=== PATIENT | male | born 1985 | race Caucasian/White ===

== ENCOUNTER 2016-12-08 10:44 | Emergency (ER) | payer OTHER ==
--- NOTE | 2016-12-08 11:14 | EDPHY ---
H & P Stated Complaint: bloody emesis and dysuria Time Seen by Provider: 12/08/16 11:00 HPI/ROS: CHIEF COMPLAINT: Hematemesis HISTORY OF PRESENT ILLNESS: 31-year-old male with no coagulopathic disorder, no history of chronic NSAID, awoke and vomited food product and noticed red streaks. He then vomited again. Have a more "mud like coloration". No nausea currently. He also complains of generalized abdominal discomfort. He notes no melena but does note blood on the toilet paper when he wipes and pain with defecation. He also notes 1 episode of dysuria this morning which is now resolved. No urethral discharge. No trauma. No unprotected sexual activity. PRIMARY CARE PROVIDER:no primary care provider REVIEW OF SYSTEMS: A ten point review of systems was performed and is negative with the exception of the items mentioned in the HPI PAST MEDICAL & SURGICAL HISTORY: No pertinent medical or surgical history SOCIAL HISTORY:nonsmoker. No drug use. PHYSICAL EXAM (Prior to examination, patient consented to physical exam, hands were washed and my usual and customary physical exam procedures followed) 1) GENERAL: Well-developed, well-nourished, alert and oriented. Appears to be in no acute distress. Smiling. 2) HEAD: Normocephalic, atraumatic 3) HEENT: Pupils equal, round, reactive to light bilaterally. Sclera anicteric. Nasopharynx, oropharynx, clear, no lesions. Ears bilaterally with normal tympanic membranes. 4) NECK: Full range of motion, no meningeal signs. 5) LUNGS: Clear auscultation bilaterally, no wheezes, no rhonchi, no retractions. 6) HEART: Regular rate and rhythm, no murmur, no heave, no gallop. 7) ABDOMEN: No guarding, no rebound, no focal tenderness, negative McBurney's, negative Hung's, negative Rovsing's, negative peritoneal sign, 8) MUSCULOSKELETAL: Moving all extremities, no focal areas of tenderness, no obvious trauma. No peripheral edema or discoloration. 9) BACK: No CVA tenderness, no midline vertebral tenderness, no fluctuance, no step-off, no obvious trauma, no visual or palpable abnormality. 10) SKIN: No rash, no petechiae. 11) Psychiatric: Patient is oriented X 3, there is no agitation. 12) : Circumcised, no urethral discharge, no signs of trauma bilateral cremasteric reflex present brisk. Rectal examination reveals nonthrombosed external hemorrhoid, brown stool on glove. DIFFERENTIAL DIAGNOSIS: in no particular include but limited to upper GI bleed , lower GI bleed, Lisa-Jameson tear, anal fissure, hemorrhoid - Personal History Current Tetanus/Diphtheria Vaccine: Yes - Medical/Surgical History Hx Asthma: No Hx Chronic Respiratory Disease: No Hx Diabetes: No Hx Cardiac Disease: No Hx Renal Disease: No Hx Cirrhosis: No Hx Alcoholism: No Hx HIV/AIDS: No Hx Splenectomy or Spleen Trauma: No Other PMH: denies - Social History Smoking Status: Never smoked Constitutional: Initial Vital Signs Temperature (C) 36.7 C 12/08/16 10:46 Heart Rate 85 12/08/16 10:46 Respiratory Rate 16 12/08/16 10:46 Blood Pressure 142/100 H 12/08/16 10:46 O2 Sat (%) 95 12/08/16 10:46 O2 Delivery Mode Room Air Allergies/Adverse Reactions: No Known Allergies Allergy (Verified 12/08/16 10:45) Home Medications: Medication Instructions Recorded NK [No Known Home Meds] 12/08/16 Medical Decision Making ED Course/Re-evaluation: I discussed case with Dr. Charlie Cuevas in the emergency department. Phone consultation with Dr. Yang Walton on Gastroenterology at 12:20 p.m. who recommended starting the patient on proton pump inhibitor and patient does not necessitate admission as he is hemodynamically stable, normal H&H. Plan will be follow up on outpatient basis. Patient feels comfortable with this plan. Abdomen remained soft no guarding no rebound. Doubt acute surgical abdominal pathology such as acute appendicitis. He has normal testicular examination. Doubt testicular torsion. He also is noted to have a non thrombosed hemorrhoid. We discussed increasing fluid and fiber intake, Sitz baths. He also mentioned a single episode of dysuria which is now resolved. No evidence of bacteriuria/pyuria on urinalysis. Patient feels comfortable being discharged home with my usual customary discharge precautions and instructions. - Data Points Laboratory Results: Laboratory Results 12/08/16 Unknown 12/08/16 Unknown 12/08/16 12/08/16 12/08/16 Unknown Unknown Unknown WBC 10.58 10^3/uL H 10^3/uL (3.80-9.50) RBC 5.36 10^6/uL 10^6/uL (4.40-6.38) Hgb 16.0 g/dL g/dL (13.7-17.5) Hct 47.6 % % (40.0-51.0) MCV 88.8 fL fL (81.5-99.8) MCH 29.9 pg pg (27.9-34.1) MCHC 33.6 g/dL g/dL (32.4-36.7) RDW 12.8 % % (11.5-15.2) Plt Count 249 10^3/uL 10^3/uL (150-400) MPV 9.8 fL fL (8.7-11.7) Neut % (Auto) 90.2 % H % (39.3-74.2) Lymph % (Auto) 6.6 % L % (15.0-45.0) Barber % (Auto) 2.5 % L % (4.5-13.0) Eos % (Auto) 0.0 % L % (0.6-7.6) Baso % (Auto) 0.3 % % (0.3-1.7) Nucleat RBC Rel Count 0.0 % % (0.0-0.2) Absolute Neuts (auto) 9.55 10^3/uL H 10^3/uL (1.70-6.50) Absolute Lymphs (auto) 0.70 10^3/uL L 10^3/uL (1.00-3.00) Absolute Monos (auto) 0.26 10^3/uL L 10^3/uL (0.30-0.80) Absolute Eos (auto) 0.00 10^3/uL L 10^3/uL (0.03-0.40) Absolute Basos (auto) 0.03 10^3/uL 10^3/uL (0.02-0.10) Absolute Nucleated RBC 0.00 10^3/uL 10^3/uL (0-0.01) Immature Gran % 0.4 % % (0.0-1.1) Immature Gran # 0.04 10^3/uL 10^3/uL (0.00-0.10) Sodium 139 mEq/L mEq/L (134-144) Potassium 4.2 mEq/L mEq/L (3.5-5.2) Chloride 104 mEq/L mEq/L (97-110) Carbon Dioxide 27 mEq/l mEq/l (22-31) Anion Gap 8 mEq/L mEq/L (8-16) BUN 11 mg/dL mg/dL (7-23) Creatinine 0.7 mg/dL mg/dL (0.7-1.3) Estimated GFR > 60 Glucose 95 mg/dL mg/dL (70-100) Calcium 9.9 mg/dL mg/dL (8.5-10.4) Total Bilirubin 1.4 mg/dL mg/dL (0.1-1.4) Conjugated Bilirubin 0.4 mg/dL mg/dL (0.0-0.5) Unconjugated Bilirubin 1.0 mg/dL mg/dL (0.0-1.1) AST 35 IU/L IU/L (17-59) ALT 37 IU/L IU/L (21-72) Alkaline Phosphatase 65 IU/L IU/L (38-126) Total Protein 8.2 g/dL g/dL (6.3-8.2) Albumin 5.0 g/dL g/dL (3.5-5.0) Lipase 82.0 IU/L IU/L (23-300) Urine Color Urine Appearance Urine pH Ur Specific Boelus Urine Protein Urine Ketones Urine Blood Urine Nitrate Urine Bilirubin Urine Urobilinogen Ur Leukocyte Esterase Urine RBC Urine WBC Ur Epithelial Cells Urine Mucus Urine Glucose Stool Occult Bld Scrn POSITIVE H (NEGATIVE) 12/08/16 11:50 WBC RBC Hgb Hct MCV MCH MCHC RDW Plt Count MPV Neut % (Auto) Lymph % (Auto) Barber % (Auto) Eos % (Auto) Baso % (Auto) Nucleat RBC Rel Count Absolute Neuts (auto) Absolute Lymphs (auto) Absolute Monos (auto) Absolute Eos (auto) Absolute Basos (auto) Absolute Nucleated RBC Immature Gran % Immature Gran # Sodium Potassium Chloride Carbon Dioxide Anion Gap BUN Creatinine Estimated GFR Glucose Calcium Total Bilirubin Conjugated Bilirubin Unconjugated Bilirubin AST ALT Alkaline Phosphatase Total Protein Albumin Lipase Urine Color YELLOW Urine Appearance CLEAR Urine pH 9.0 H (5.0-7.5) Ur Specific Boelus 1.024 (1.002-1.030) Urine Protein 1+ H (NEGATIVE) Urine Ketones 1+ H (NEGATIVE) Urine Blood NEGATIVE (NEGATIVE) Urine Nitrate NEGATIVE (NEGATIVE) Urine Bilirubin NEGATIVE (NEGATIVE) Urine Urobilinogen NEGATIVE EU EU (0.2-1.0) Ur Leukocyte Esterase NEGATIVE (NEGATIVE) Urine RBC 5-10 /hpf H /hpf (0-3) Urine WBC 1-3 /hpf /hpf (0-3) Ur Epithelial Cells TRACE /lpf /lpf (NONE-1+) Urine Mucus TRACE /lpf /lpf (NONE-1+) Urine Glucose NEGATIVE (NEGATIVE) Stool Occult Bld Scrn Medications Given: Discontinued Medications Pantoprazole Sodium (Protonix) 40 mg PO EDNOW ONE Stop: 12/08/16 12:24 Last Admin: 12/08/16 12:43 Dose: 40 mg Departure - Departure Disposition: Home, Routine, Self-Care Clinical Impression: Hemorrhoid Hematemesis Qualifiers: Nausea presence: without nausea Qualified Code(s): K92.0 - Hematemesis Condition: Good Instructions: Hematemesis (ED), Hemorrhoids (ED) Additional Instructions: Return to the emergency department if you develop visible blood in your vomit, if you develop dizziness, or any other symptoms that concern you Referrals: Yang Walton MD [Medical Doctor] - 5-7 days, call for appt. [facility],. [Clinic] - As per Instructions
[2016-12-08 11:19] LABS: % IMMATURE GRANULYOCYTES 0.4 % (0.0-1.1); ABSOLUTE IMMATURE GRANULOCYTES 0.04 10^3/uL (0.00-0.10); ADD DIFF? NO; ADD MORPH? NO; ADD SCAN? NO; ATYPICAL LYMPHOCYTE FLAG 0 (0-99); FRAGMENT RBC FLAG 0 (0-99); HEMATOCRIT 47.6 % (40.0-51.0); LEFT SHIFT FLG 0 (0-99); LIPEMIA HEMOLYSIS FLAG 80 (0-99); MEAN CELL HEMOGLOBIN 29.9 pg (27.9-34.1); MEAN CELL HEMOGLOBIN CONCENTR. 33.6 g/dL (32.4-36.7); MEAN CELL VOLUME 88.8 fL (81.5-99.8); MEAN PLATELET VOLUME 9.8 fL (8.7-11.7); PLATELET CLUMPS FLAG 0 (0-99); PLATELET COUNT 249 10^3/uL (150-400); RED BLOOD CELL COUNT 5.36 10^6/uL (4.40-6.38); RED CELL DISTRIBUTION WIDTH 12.8 % (11.5-15.2)
[2016-12-08 11:40] LABS: ALANINE AMINOTRANSFERASE 37 IU/L (21-72); ALKALINE PHOSPHATASE 65 IU/L (38-126); ANION GAP 8 mEq/L (8-16); ASPARTATE AMINOTRANSFERASE 35 IU/L (17-59); BILIRUBIN,TOTAL 1.4 mg/dL (0.1-1.4); BILIRUBIN-CONJUGATED 0.4 mg/dL (0.0-0.5); CALCIUM 9.9 mg/dL (8.5-10.4); CARBON DIOXIDE 27 mEq/l (22-31); CHLORIDE 104 mEq/L (97-110); CREATININE 0.7 mg/dL (0.7-1.3); GLOMERULAR FILTRATION RATE > 60; GLUCOSE 95 mg/dL (70-100); POTASSIUM 4.2 mEq/L (3.5-5.2); SODIUM 139 mEq/L (134-144); TOTAL PROTEIN 8.2 g/dL (6.3-8.2)
[2016-12-08] MEDS ORDERED: PANTOPRAZOLE SODIUM 40 MG TAB PO ONE (12:23)
[2016-12-08 13:02] LABS: COLOR YELLOW; LEUKOCYTE ESTERASE,URINE NEGATIVE (NEGATIVE); NITRITE,URINE NEGATIVE (NEGATIVE)
[2016-12-08 13:04] LABS: MUCUS TRACE /lpf (NONE-1+)
[2016-12-08 14:08] VITALS: BP 122/80; PULSE 67; RESP 14; TEMP 97.7; O2SAT 93
== END 2016-12-08 14:08 | disposition home or self-care (01) ==
DX: K92.0 Hematemesis (principal); K64.9 Unspecified hemorrhoids

== ENCOUNTER 2016-12-20 15:24 | Emergency (ER) | payer OTHER ==
[2016-12-20 15:34] VITALS: TEMP 98.4
--- NOTE | 2016-12-20 15:43 | CPEKG ---
Heart Rate: 90 RR Interval: 667 P-R Interval: 160 QRSD Interval: 94 QT Interval: 340 QTC Interval: 416 P Limestone: 83 QRS Limestone: -2 T Wave Limestone: 67 EKG Severity - NORMAL ECG - EKG Impression: SINUS RHYTHM Electronically Signed By: Pee Navas 20-Dec-2016 16:15:41
[2016-12-20] MEDS ORDERED: IBUPROFEN 600 MG TAB PO ONE (16:07)
[2016-12-20] MEDS ORDERED: IBUPROFEN 200 MG TAB PO ONE (16:10)
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
[2016-12-20 16:11] VITALS: BP 106/67; PULSE 79; RESP 16; O2SAT 95
== END 2016-12-20 16:15 | disposition home or self-care (01) ==
DX: R07.89 Other chest pain (principal)